=== PATIENT | female | born 1985 | race Caucasian/White ===

== ENCOUNTER 2021-12-12 07:34 | Inpatient (IN) ==
[2021-12-12] MEDS ORDERED: OXYTOCIN 30 UNITS/500 ML BAG IV PRN ×3 (08:05→14:20)
--- NOTE | 2021-12-12 08:21 | History & Physical Report ---
Date of Service December 12, 2021 Assessment & Plan (1) : Plan: 36 y/o at 40 5/7 wga presents for IOL VSS Fetus cat 1 Labor - will start pit GBS neg epidural PRN Admission and Anticipated Discharge Date Admission Date: December 12, 2021 History of Present Illness Chief Complaint: IOL Primary Care Provider: Riaz BarrettLata Henriquez 36 y/o at 40 5/7 wga presents for IOL. +FM; denies regular ctx, LOF, VB PNI: Hx ectopic s/p R salpingectomy thyroid dysfunction Rh neg Past INSTRUMENT PROCESSING TECH Hx: G1 2014 SAB G2 2014 G3 2017 R ectopic s/p slapingectomy G4 2018 G5 2019 G6 current denies hx STIs 09/2020 reports normal pap Allergies Allergy/AdvReac Type Severity Reaction Status Date / Time No Known Allergies Allergy Mild Verified 12/11/21 09:53 Home Medications Medication Instructions Recorded Confirmed Type levothyroxine 50 mcg capsule 50 mcg PO DAILY 10/13/21 12/12/21 History prenat.vits,walter,osq-xzdg-zynhe 1 tab PO DAILY 12/12/21 12/12/21 History Patient History Medical History Ectopic , tubal (~08/19/16) History of chicken pox Ovarian cyst Surgical History (Updated 12/12/21 @ 08:19 by Toya Cedillo MD) H/O adenoidectomy S/P ectopic R salpingectomy 2016 Family History Mother Breast cancer, Onset Age: 50 Father Dyslipidemia Grandmother (Paternal) Heart disease Grandfather (Paternal) Heart disease Grandfather (Maternal) Stroke Denies family history of Ovarian cancer Prostate cancer Colorectal cancer Social History (Updated 12/12/21 @ 07:52 by Fabiola Fischer RN) Smoking Status: Never smoker Hx Alcohol Use: No Hx Substance Use: No Preferred Language: Moroccan Visual Impairment: No Limitations Hearing Ability: Normal Beliefs That Will Affect Care: None marital status: marital status details: Valeriy Mota (33) [phone] Current Living Situation: Family Current Living Situation Comment: lives with family no pets current occupational status: unemployed current occupation: homemaker Feels Safe at Home: Yes Safety Concerns: Feels Safe At This Time Gender Identity: Female Physical Exam Genitourinary: OB Exam Abdomen: + vertex and + estimated weight (7-8) Manual OB Exam: + cervical dilation 3 cm, + cervical effacement 50% and + station -2 OB Exam Monitor Tracing: + external FHT monitor used, + external uterine monitor used (irreg ctx) and + category I (140/mod/+accel/-decel) Results & Data ([facility]) Vital Signs (Past 12 Hours) Vital Signs Temp Pulse Resp BP 12/12/21 07:39 98.6 F 99 H 20 117/58 L Laboratory Results OB Labs: Blood Type B Negative 05/02/21 Antibody Screen NEGATIVE 09/26/21 Hemoglobin 11.8 g/dL (12.0-16.0) L 09/26/21 Hematocrit 35.0 % (37-47) L 09/26/21 Mean Corpuscular Volume 87.7 fL (80-100) 04/09/21 Platelet Count 162 K/uL (130-400) 04/09/21 Rubella IgG Antibody Immune (Immune) 05/02/21 Rapid Plasma Reagin Nonreactive (Nonreactive) 05/02/21 Hepatitis B Surface Antigen Neg (Neg) 05/02/21 HIV (1&2) Ab and P24 Ag, 4th Gener Neg (Neg) 05/02/21 Glucose 1 Hour 50 gm Load 140 mg/dl (70-130) H 07/03/21 OB Optional Labs: Chlamydia trachomatis RNA NOT DETECTED (NOT DETECTED) 05/02/21 Neisseria gonorrhoeae RNA NOT DETECTED (NOT DETECTED) 05/02/21 Thyroid Stimulating Hormone (TSH) 3.027 uIu/ml (0.300-4.500) 10/27/21 Labs Reviewed: declines genetics--akh gbs neg Coding Level of Care Code None Diagnoses Z3A.01 Weeks of gestation: less than 8 weeks (1) Weeks of gestation: less than 8 weeks Qualified Code(s): Z3A.01 - Less than 8 weeks gestation of
[2021-12-12 08:55] LABS: Hematocrit (blood only) 37.2 % (37-47); Mean Corpuscular Hgb Conc 34.9 g/dL (32-36); Mean Corpuscular Volume 91.6 fL (80-100); Mean Platelet Volume 9.5 fL (7.4-10.4); Platelet Count 157 K/uL (130-400); RDW Coefficient of Variation 13.7 % (11.5-14.5); RDW Standard Deviation 45.4 fL (36.4-46.3); Red Blood Count 4.06 M/uL (4.2-5.4); White Blood Count 10.09 K/uL (4.8-10.8)
[2021-12-12] MEDS: LACTATED RINGER'S 1,000 ML IV PRN ×2 (09:07→12:48)
[2021-12-12] MEDS ORDERED: ePHEDrine sulfate 50 MG/ML AMP IV PRN (12:04)
[2021-12-12] MEDS ORDERED: diphenhydrAMINE 50 MG/ML VIAL IV PRN (12:04)
[2021-12-12] MEDS ORDERED: NALOXONE HCL 0.4 MG/1 ML VIAL/CARP IV PRN (12:04)
[2021-12-12] MEDS ORDERED: NALBUPHINE HCL INJ 10 MG/ML AMP IV PRN (12:04)
[2021-12-12] MEDS ORDERED: fentaNYL 2MCG/ML ROPIVACAINE 1.25MG/ML 100 ML BAG EPI PRN (12:04)
[2021-12-12] MEDS ORDERED: NALOXONE HCL 1 MG in SODIUM CHLORIDE 0.9% 1000ML 1,000 ML IV PRN (12:04)
[2021-12-12] MEDS ORDERED: ONDANSETRON INJ 2 MG/ML 2 ML VIAL IV PRN (12:04)
--- NOTE | 2021-12-12 12:04 | Anesthesiology Consultation ---
Date of Service December 12, 2021 Assessment & Plan ASA ASA2 Proposed Anesthesia Anesthesia Type: CSE Risk / Benefits Reviewed With: PT / POA / Parent / Guardian, Accepts Plan and Informed Consent Obtained History Height/Weight Height: 5 ft 2 in Weight: 74.503 kg Allergies Allergy/AdvReac Type Severity Reaction Status Date / Time No Known Allergies Allergy Mild Verified 12/11/21 09:53 Medications Home Medications Medication Instructions Recorded Confirmed Last Taken levothyroxine 50 mcg capsule 50 mcg PO DAILY 10/13/21 12/12/21 12/11/21 07:00 prenat.vits,walter,deg-jgjk-wauzj 1 tab PO DAILY 12/12/21 12/12/21 12/11/21 22:00 Active Medications Generic Name Dose Route Start Last Admin Trade Name Freq PRN Reason Stop Dose Admin Lactated Ringer's 1,000 mls @ 125 mls/hr 12/12/21 08:05 12/12/21 12:48 Lr IV 12/14/21 08:04 999 mls/hr .Q8H PRN Administration L&D Protocol Protocol Oxytocin 30 units in 500 mls @ 12 mls/hr 12/12/21 08:09 12/12/21 11:30 Pitocin IV 12/14/21 08:08 0.72 units/hr .Q24H PRN 12 mls/hr Labor Induction/Augmentation Titration Protocol 0.72 UNITS/HR Past Medical History Medical History Ectopic , tubal (~08/19/16) History of chicken pox Ovarian cyst Exercise / Class Metabolic Activity II 4-5 Yardwork/Stairs/Walk up hill Past Family History Family History Mother Breast cancer, Onset Age: 50 Father Dyslipidemia Grandmother (Paternal) Heart disease Grandfather (Paternal) Heart disease Grandfather (Maternal) Stroke Denies family history of Ovarian cancer Prostate cancer Colorectal cancer Past Surgical History Surgical History H/O adenoidectomy S/P ectopic R salpingectomy 2017 Past Anesthesia History No Hx of Anesthesia Complications and No Family Hx of Anesthesia Complications History of PONV No Hx of PONV and No Hx of Motion Sickness Social History Smoking Status: Never smoker Hx Alcohol Use: No Hx Substance Use: No substance use type: does not use Review of Systems denies fever/cough/ colds/ chest pain/ SOB/ LISETTE denies LISETTE Physical Exam Vital Signs Last Vital Signs Temp 36.8 C 12/12/21 11:59 Pulse 94 H 12/12/21 13:06 Resp 20 12/12/21 11:59 BP 104/60 12/12/21 13:06 Pulse Ox 99 12/12/21 13:03 ENMT Mouth: no TMJ abnormality and no dentition abnormality Thyromental Distance: > or= 3.5 Finger Breadths Mallampati Class: II Neck neck extension not limited Respiratory normal respiratory effort; no respiratory distress Auscultation: lungs clear to auscultation bilaterally Cardiovascular Rate/Rhythm: regular rate and regular rhythm Neurologic moves all extremities Psychiatric Orientation: alert and oriented x 3 Testing Laboratory Results 12/12/21 08:32
[2021-12-12] MEDS ORDERED: ePHEDrine sulfate 50 MG/ML AMP ONE (12:08)
[2021-12-12] MEDS ORDERED: BUPIVACAINE 0.25% 30 ML VIAL ONE (12:08)
[2021-12-12] MEDS ORDERED: SODIUM CHLORIDE 0.9% INJ 10 ML VIAL ONE (12:08)
[2021-12-12] MEDS ORDERED: fentaNYL citrate 100 MCG/2 ML VIAL ONE (12:08)
[2021-12-12] MEDS ORDERED: fentaNYL 2MCG/ML ROPIVACAINE 1.25MG/ML 100 ML BAG EPI ONE (12:09)
[2021-12-12] MEDS ORDERED: HYDROCORTISONE ACETATE 25 MG SUPP PR PRN (14:20)
[2021-12-12] MEDS ORDERED: BENZOCAINE 20% AER SPR 82.5 GM CAN EXT PRN (14:20)
[2021-12-12] MEDS ORDERED: DIPHTHERIA/TETANUS/PERTUSSIS 0.5 ML SYR/VIAL IM ONE (14:20)
[2021-12-12] MEDS ORDERED: bisacodyL 10 MG SUPP PR PRN (14:20)
[2021-12-12] MEDS ORDERED: miSOPROStoL 200 MCG TAB PR ONE (14:20)
[2021-12-12] MEDS ORDERED: ACETAMINOPHEN 325 MG TAB PO PRN (14:20)
[2021-12-12] MEDS ORDERED: miSOPROStoL 200 MCG TAB ONE (14:22)
--- NOTE | 2021-12-12 14:22 | Delivery Summary ---
Vaginal Delivery Summary Date of Service December 12, 2021 Vaginal Delivery Summary [facility] PREOPERATIVE DIAGNOSIS: 1. Single intrauterine at 40w5d 2. History of thyroid dysfunction 3. Rh neg POSTOPERATIVE DIAGNOSIS: 1. Single intrauterine at 40w5d 2. History of thyroid dysfunction 3. Rh neg 4. Delivered PROCEDURE: 1. Normal spontaneous vaginal delivery. SURGEON: Toya Cedillo MD ANESTHESIA: Epidural. ESTIMATED BLOOD LOSS: 500 mL FLUIDS: Continuous LR. URINE OUTPUT: None. COMPLICATIONS: None. CONDITION: Stable. INDICATIONS: 36 y/o presented for IOL. She was 3cm on arrival and started on pitocin. She received an epidural for pain control. She then underwent spontaneous rupture of membranes and was found to be 10cm. FINDINGS: A viable male infant, weight pending with Apgars of 8 and 9 at 1 and 5 minutes respectively. SPECIMEN: None. OPERATIVE REPORT: The patient progressed to 10 cm, 100% effaced and +2 station, pushed over intact perineum with anesthesia to deliver a viable male infant, weight and Apgars as above. Head of delivered in SMILEY position. No nuchal cord was present. Body and shoulders were delivered without difficulty. was delivered to maternal abdomen and nursing staff. Delayed cord clamping was p erformed for 60 seconds. Cord was clamped and cut. Cord blood was obtained. Placenta delivered spontaneously intact with 3-vessel cord. IV oxytocin and fundal massage were given for excellent hemostasis. Vagina, cervix, perineum, and placenta were inspected. A second degree laceration with multiple vessels noted to be bleeding within the laceration. The laceration was repaired with arteries secured using 3-0 vicryl in a continuous fashion and two additional figure of eight stitches. There was noted to be a slight trickle from lower uterine segment atony and clot was removed, there was then excellent hemostasis. 1000mcg cytotec was placed prophylactically. Sponge and needle counts correct x2. No sponges were left behind. Mother and stable in immediate period. [facility] Vaginal Delivery Charge Vaginal Delivery Codes: 90534 global code for the antepartum, delivery, and post- Delivery Type Details: [facility]
--- NOTE | 2021-12-12 15:36 | Anesthesia Procedure Note ---
Date of Service December 12, 2021 Anesthesia Post Epidural Note Vital Signs Vital Signs: Temp Pulse Resp BP Pulse Ox 36.6 C 113 H 20 105/52 L 100 12/12/21 14:08 12/12/21 15:24 12/12/21 15:08 12/12/21 15:24 12/12/21 14:13 Pain Intensity Abdomen: Pain Intensity: 0 Notes Mental Status: alert / awake / arousable and participated in evaluation Patient Amnestic to Procedure: Yes Nausea / Vomiting: adequately controlled Pain: adequately controlled Airway Patency, RR, SpO2: stable & adequate BP & HR: stable & adequate Hydration State: stable & adequate Anesthetic Complications: no major complications apparent and Pt Satisfied with anesthetic care
[2021-12-12] MEDS: IBUPROFEN 600 MG TAB PO PRN ×2 (19:24→22:40)
[2021-12-12] MEDS: DOCUSATE SODIUM 100 MG CAP PO SCH (22:40)
[2021-12-13] MEDS: IBUPROFEN 600 MG TAB PO PRN ×2 (04:51→08:15)
--- NOTE | 2021-12-13 06:12 | Obstetrical Progress Note ---
Date of Service December 13, 2021 Assessment & Plan (1) Encounter for care and examination after delivery: Plan: Patient is a 36-year-old now female status post day 1. -Continue routine care,D/C today, discharge instructions reviewed with patient -B-, antibody negative, rubella immune, GBS negative, RhoGAM to be given prior to discharge -Encourage breast-feeding -Encouraged ambulation -Tylenol and ibuprofen as needed for pain control -Follow-up OB appointment in [address] Cedillo Admission and Anticipated Discharge Date Admission Date: December 12, 2021 Supervising Physician Co-Signing Physician Notes Resident Physician Supervision Note: I interviewed and examined the patient. Discussed with Dr. Mcpherson and agree with findings and plan as documented in the note. Any exceptions or clarifications are listed here: Doing well. Plan d/c later. Instructions given. Documented By: Noelle Hawkins MD, FACOG Subjective Patient is a 36-year-old now female status post who delivered at 40 and 5/7 weeks gestation, day 1. Patient doing well overall and experiencing 4 out of 10 pain is controlled with ibuprofen. Patient is able to walk around room going to the bathroom and passing gas and urinating. No bowel movement as of yet. Patient is able to tolerate a regular diet without nausea or vomiting. Reports lochia is mild and improved from yesterday. Patient reports that she did have a frontal headache overnight that was short-lived and resolved with ibuprofen. Reports that she has not received her RhoGAM as of yet. Denies any fevers, chills, chest pain, shortness of breath, UTI symptoms. Patient would like to go home if able to today. Review of Systems Review of Systems: All systems reviewed & are unremarkable except as noted in HPI & below Physical Exam Constitutional: WD/WN, vitals as above Eyes: + anicteric sclerae Neck: trachea midline, no thyromegaly Respiratory: normal respiratory effort, lungs clear to auscultation Cardiovascular: RRR, no murmur, no edema Gastrointestinal (Abdomen): normal bowel sounds, soft, nontender, no hepatosplenomegaly Musculoskeletal: Head/Neck/Chest: normocephalic and head atraumatic Skin: no rashes, warm and dry Neurologic: moves all extremities Psychiatric: A+Ox3, euthymic affect Genitourinary: Uterine fundus palpated 1 cm above the umbilicus, firm Results & Data ([facility]) Vital Signs (Past 12 Hours) Vital Signs Temp Pulse Resp BP Pulse Ox 12/13/21 04:30 36.5 C 86 16 102/66 99 12/12/21 23:48 36.8 C 87 16 109/65 97 12/12/21 20:02 36.6 C 106 H 16 105/67 97
[2021-12-13 07:22] LABS: Hematocrit (blood only) 31.8 % (37-47); Mean Corpuscular Hemoglobin 32.1 pg (25-34); Mean Corpuscular Hgb Conc 34.6 g/dL (32-36); Mean Corpuscular Volume 92.7 fL (80-100); Mean Platelet Volume 9.4 fL (7.4-10.4); Platelet Count 140 K/uL (130-400); RDW Coefficient of Variation 13.8 % (11.5-14.5); RDW Standard Deviation 46.6 fL (36.4-46.3); Red Blood Count 3.43 M/uL (4.2-5.4); White Blood Count 11.09 K/uL (4.8-10.8)
[2021-12-13] MEDS: DOCUSATE SODIUM 100 MG CAP PO SCH (07:52)
[2021-12-13] MEDS ORDERED: PRENATAL VITAMIN 1 TAB PO SCH (08:00)
[2021-12-13] MEDS ORDERED: FERROUS SULFATE 325 MG TAB PO SCH (08:00)
[2021-12-13] MEDS ORDERED: bisacodyL 5 MG TABEC PO SCH (20:00)
== END 2021-12-13 15:07 | disposition home or self-care (01) | DRG 807 ==
LOC: 4S1 07:34 → 4E2 18:57